=== PATIENT | male | born 1995 | race Two or more races ===

== ENCOUNTER 2021-07-03 09:48 | Emergency (ER) | payer OTHER ==
[2021-07-03 09:54] VITALS: TEMP 97.9; BMI 27.2
[2021-07-03] MEDS ORDERED: KETOROLAC TROMETHAMINE 30 MG/1 ML VIAL IM ONE (10:22)
[2021-07-03] MEDS ORDERED: KETOROLAC TROMETHAMINE 30 MG/1 ML VIAL ONE (10:42)
[2021-07-03] MEDS ORDERED: LIDOCAINE 5% TOPICAL PATCH TP ONE (11:14)
[2021-07-03] MEDS ORDERED: morphine CARPU-JECT 4 MG/1 ML DISP.SYRIN SQ ONE (11:14)
[2021-07-03] MEDS ORDERED: LIDOCAINE 5% TOPICAL PATCH ONE (11:34)
[2021-07-03] MEDS ORDERED: morphine SULFATE 4 MG/ML VIAL ONE (11:34)
[2021-07-03 13:12] VITALS: BP 120/68; PULSE 86
[2021-07-03] MEDS ORDERED: LIDOCAINE PATCH REMOVAL MC ONE (22:00)
== END 2021-07-03 13:12 | disposition home or self-care (01) ==
LOC: JER 09:48
PROC: 3E0233Z Introduction of Anti-inflammatory into Muscle, Percutaneous Approach (ICD-10-PCS; principal; 2021-07-03)
DX: M79.602 Pain in left arm (principal); W20.8XXA Other cause of strike by thrown, projected or falling object, initial encounter
CPT/HCPCS: 71046-TC-FY; 73030-TC-LT-FY; 99284-25